=== PATIENT | male | born 1950 | race Two or more races ===

== ENCOUNTER 2017-07-18 08:23 | Day surgery (SDC) | payer OTHER ==
[~2017-07-18] VITALS: Ht 180.3 cm; Wt 118.4 kg
[~2017-07-18 08:23] MED LIST: ASPI81TA27 PO; ATOR20TA50 PO; ESCI10TA53 PO; FURO40TA4 PO; HYDR4TAB2 PO; IODIXANOL 320MG/ML 100ML BTL IV ONE; ISOS20TA56 PO; LIDOCAINE 2%HCL (LOCAL ANESTH.) INJ 20ML MDV ONE; METO-158 PO; MORP30TA PO; POTA10TA51 PO
[2017-07-18] MEDS ORDERED: MIDAZOLAM HCL 1MG/1ML-2 ML VIAL ONE (10:02)
[2017-07-18] MEDS ORDERED: fentaNYL CITRATE 100 MCG/2 ML VL ONE (10:03)
[2017-07-18] MEDS ORDERED: ANGIOMAX 250 MG VIAL IV ONE (10:03)
[2017-07-18] MEDS ORDERED: SODIUM CHL 0.9% 50 ML ONE (10:44)
== END 2017-07-18 13:00 | disposition home or self-care (01) ==
LOC: CATH 08:23
PROVIDERS: ATTEND Internal Medicine
DX: I20.0 Unstable angina (principal); Z87.891 Personal history of nicotine dependence; I10 Essential (primary) hypertension; E78.5 Hyperlipidemia, unspecified; I25.2 Old myocardial infarction; Z95.1 Presence of aortocoronary bypass graft
CPT/HCPCS: 93005; 93458; C1760; C1894; J1644; J2250; J3010; J7030; Q9967; 99152; 99153

== ENCOUNTER → 2019-11-12 | Day surgery (SDC) | payer OTHER ==
[~2019-11-12] VITALS: Ht 182.9 cm; Wt 104.3 kg
[~2019-11-12] MED LIST changes: +ASPI-404 PO; -ASPI81TA27 PO; +BUPIVACAINE 0.25% INJ 50ML VIAL ONE; +CEPH250C PO; +DOCU-94 PO; +DexAMETHasone SOD PHOS 10MG/1ML VIAL INJ ONE; +HYDR-4833 GT; +HYDROmorphone HCL 2 MG/ML VL IV PRN; -IODIXANOL 320MG/ML 100ML BTL IV ONE; +LABETALOL HCL 5 MG/ML 4ML SYRINGE IV PRN; +LIDOCAINE 1% HCL (LOCAL ANESTH.) INJ 20ML MDV ONE; -LIDOCAINE 2%HCL (LOCAL ANESTH.) INJ 20ML MDV ONE; +MEPERIDINE HCL (25 MG/ML) 1ML VIAL ONE; +MIDAZOLAM HCL 1MG/1ML-2 ML VIAL IV PRN; +MIDAZOLAM HCL 1MG/1ML-2 ML VIAL ONE; +MORPHINE SULFATE 4 MG/ML SYR/VIAL IV PRN; +ONDANSETRON HCL 4 MG/2 ML VIAL IV PRN; +PROPOFOL 10 MG/ML 20 ML IV ONE; +ceFAZolin 1GM/50ML 100 ML IV ONE; +ePHEDrine SULFATE 50 MG/ML AMP IV PRN; +fentaNYL CITRATE 100 MCG/2 ML VL ONE
[2019-11-12 07:23] LABS: Basophils # (auto) 0.1 uL; Basophils % (auto) 0.7 % (0.0-2.0); Eosinophils # (auto) 0.5 uL; Eosinophils % (auto) 7.3 % (0.0-7.0); Hematocrit 45.2 % (41.0-53.0); Lymphocytes # (auto) 1.7 uL; Lymphocytes % (auto) 23.9 % (10.0-50.0); Mean Corpuscular Hemoglobin 28.3 pg (28.0-32.0); Mean Corpuscular Hgb Conc. 33.1 g/dL (32.0-36.0); Mean Corpuscular Volume 85.5 fL (80.0-100.0); Monocytes # (auto) 0.6 uL; Monocytes % (auto) 7.8 % (0.0-12.0); Neutrophils # (auto) 4.4 uL; Neutrophils % (auto) 60.3 % (37.0-80.0); Platelet Count (auto) 185 10^3/uL (140-450); Red Blood Cells 5.29 10^6/uL (4.5-5.90); Red Cell Distribution Width 14.2 % (11.8-14.3); White Blood Cell 7.3 10^3/uL (4.4-10.8)
[2019-11-12 07:38] LABS: INR 1.12 (0.9-1.15); Partial Thromboplastin Time 29.1 sec (23.64-32.05)
[2019-11-12 08:49] VITALS: BP 111/84
== END | disposition home or self-care (01) ==
LOC: SUR 06:01
PROVIDERS: ATTEND Surgery
DX: L72.0 Epidermal cyst (principal); L72.3 Sebaceous cyst; I10 Essential (primary) hypertension; J45.909 Unspecified asthma, uncomplicated; I25.2 Old myocardial infarction; I25.10 Atherosclerotic heart disease of native coronary artery without angina pectoris; E78.5 Hyperlipidemia, unspecified; F17.210 Nicotine dependence, cigarettes, uncomplicated; Z79.899 Other long term (current) drug therapy; Z95.0 Presence of cardiac pacemaker; Z98.890 Other specified postprocedural states
CPT/HCPCS: 11401; 11403; 36415; 85025; 85610; 85730; 87070; 87075; J0690; J1100; J2001; J2175; J2250; J2704; J3010; J3490

== ENCOUNTER 2020-08-10 05:27 | Emergency (ER) | payer OTHER ==
[~2020-08-10] VITALS: Ht 177.8 cm; Wt 109.0 kg
[~2020-08-10 05:27] MED LIST changes: -ASPI-404 PO; +ASPI-543 PO; -BUPIVACAINE 0.25% INJ 50ML VIAL ONE; -DexAMETHasone SOD PHOS 10MG/1ML VIAL INJ ONE; -HYDROmorphone HCL 2 MG/ML VL IV PRN; -LABETALOL HCL 5 MG/ML 4ML SYRINGE IV PRN; -LIDOCAINE 1% HCL (LOCAL ANESTH.) INJ 20ML MDV ONE; -MEPERIDINE HCL (25 MG/ML) 1ML VIAL ONE; -MIDAZOLAM HCL 1MG/1ML-2 ML VIAL IV PRN; -MIDAZOLAM HCL 1MG/1ML-2 ML VIAL ONE; -MORPHINE SULFATE 4 MG/ML SYR/VIAL IV PRN; -ONDANSETRON HCL 4 MG/2 ML VIAL IV PRN; -PROPOFOL 10 MG/ML 20 ML IV ONE; -ceFAZolin 1GM/50ML 100 ML IV ONE; -ePHEDrine SULFATE 50 MG/ML AMP IV PRN; -fentaNYL CITRATE 100 MCG/2 ML VL ONE
[2020-08-10] MEDS ORDERED: ASPirin 81 mg TAB PO ONE (06:15)
[2020-08-10 06:54] LABS: Basophils # (auto) 0 10 ^3/uL (0-0.2); Basophils % (auto) 0.6 % (0.0-2.0); Eosinophils # (auto) 0.3 10 ^3/uL (0-0.8); Eosinophils % (auto) 3.7 % (0.0-7.0); Hemoglobin 14.9 g/dL (13.5-17.5); Lymphocytes % (auto) 11.6 % (10.0-50.0); Mean Corpuscular Hemoglobin 27.9 pg (28.0-32.0); Mean Corpuscular Hgb Conc. 33.1 g/dL (32.0-36.0); Mean Corpuscular Volume 84.5 fL (80.0-100.0); Monocytes # (auto) 0.5 10 ^3/uL (0-1.3); Monocytes % (auto) 5.6 % (0.0-12.0); Neutrophils % (auto) 78.5 % (37.0-80.0); Platelet Count (auto) 178 10^3/uL (140-450); Red Blood Cells 5.33 10^6/uL (4.5-5.90); Red Cell Distribution Width 14.4 % (11.8-14.3)
[2020-08-10 07:17] LABS: Chloride 109 mmol/L (98-107); INR 1.04 (0.9-1.15); Partial Thromboplastin Time 26.8 sec (23.0-31.2); Potassium 3.7 mmol/L (3.5-5.1); Sodium 139 mmol/L (136-145)
[2020-08-10 07:33] LABS: Alanine Aminotransferase 21 U/L (16-61); Albumin 3.6 g/dL (3.4-5.0); Alkaline Phosphatase 76 U/L (45-117); Anion Gap 6 (5-15); Aspartate Aminotransferase 13 U/L (15-37); BUN/Creatinine Ratio 14.9; Bilirubin, Total 0.6 mg/dL (0.2-1.0); Blood Urea Nitrogen 13 mg/dL (7-18); Calcium 8.5 mg/dL (8.5-10.1); Carbon Dioxide 24 mmol/L (21-32); GFR African American 112 mL/min; GFR Non-African American 92 mL/min; Glucose 98 mg/dL (74-106); Magnesium 2.4 mg/dL (1.6-2.6); Total Protein 7.5 g/dL (6.4-8.2)
[2020-08-10 12:13] VITALS: BP 142/77
--- NOTE | 2020-08-10 14:05 | NUR ---
1200 08/10/20 Faxed to [facility] case assistant Lizbeth at [phone] face sheet, STAT order to notify case assistant to schedule f/u with PCP this week and referral to Dr Harmon, cardiology for chest pain eval in 1-2 weeks. Contacted Lizbeth at [phone], was unable to connect with her but left message on voicemail regarding the above information. Pending review and scheduling of f/u appointments by PCP.
--- NOTE | 2020-08-10 15:32 | NUR ---
1445 08/10/20 - Contacted by [facility] counter caser Lizbeth, who confirmed receiving all faxed documentation. Lizbeth also stated she would process all orders received and PCP will make contact with patient as needed.
== END 2020-08-10 12:12 | disposition home or self-care (01) ==
LOC: ER 05:27
DX: I11.0 Hypertensive heart disease with heart failure (principal); I50.9 Heart failure, unspecified; R07.89 Other chest pain; F17.210 Nicotine dependence, cigarettes, uncomplicated; I25.2 Old myocardial infarction; Z95.1 Presence of aortocoronary bypass graft
CPT/HCPCS: 36415; 71045; 80053; 83735; 83880; 84484; 85025; 85610; 85730

== ENCOUNTER 2020-08-15 23:02 | Inpatient (IN) | payer OTHER ==
[~2020-08-15] VITALS: Ht 180.3 cm; Wt 108.9 kg
[2020-08-16 00:08] LABS: Basophils # (auto) 0.1 10 ^3/uL (0-0.2); Basophils % (auto) 0.6 % (0.0-2.0); Eosinophils # (auto) 0 10 ^3/uL (0-0.8); Eosinophils % (auto) 0.1 % (0.0-7.0); Hematocrit 45.2 % (41.0-53.0); Hemoglobin 14.8 g/dL (13.5-17.5); Lymphocytes # (auto) 0.5 10 ^3/uL (0.4-5.4); Lymphocytes % (auto) 4.6 % (10.0-50.0); Mean Corpuscular Hemoglobin 27.6 pg (28.0-32.0); Mean Corpuscular Hgb Conc. 32.8 g/dL (32.0-36.0); Mean Corpuscular Volume 84.4 fL (80.0-100.0); Monocytes # (auto) 0.6 10 ^3/uL (0-1.3); Monocytes % (auto) 5.7 % (0.0-12.0); Neutrophils # (auto) 8.8 10 ^3/uL (1.6-8.6); Nucleated Red Blood Cells % 0.1 %; Platelet Count (auto) 105 10^3/uL (140-450); Red Blood Cells 5.35 10^6/uL (4.5-5.90); Red Cell Distribution Width 14.1 % (11.8-14.3); White Blood Cell 9.9 10^3/uL (4.4-10.8)
[2020-08-16 00:23] LABS: Urine Bacteria FEW /hpf (None Seen); Urine Blood 2+ /uL (Negative); Urine Mucus FEW (None Seen); Urine Specific Gravity 1.024 (1.001-1.035); Urine WBC 3 /hpf (0 - 3)
[2020-08-16 00:36] LABS: Alanine Aminotransferase 24 U/L (16-61); Albumin 3.4 g/dL (3.4-5.0); Anion Gap 8 (5-15); Aspartate Aminotransferase 17 U/L (15-37); Blood Urea Nitrogen 20 mg/dL (7-18); Calcium 8.4 mg/dL (8.5-10.1); Carbon Dioxide 23 mmol/L (21-32); Chloride 103 mmol/L (98-107); GFR African American 95 mL/min; GFR Non-African American 79 mL/min; Glucose 130 mg/dL (74-106); Sodium 134 mmol/L (136-145)
[2020-08-16 00:39] LABS: Alkaline Phosphatase 79 U/L (45-117); Bilirubin, Total 0.7 mg/dL (0.2-1.0); Total Protein 7.8 g/dL (6.4-8.2)
[2020-08-16] MEDS ORDERED: SODIUM CHLORIDE 0.9% 1,000 ML IV ONE (05:30)
[2020-08-16] MEDS ORDERED: metroNIDAZOLE 500MG/100ML 100 ML IV ONE (05:30)
[2020-08-16] MEDS ORDERED: CIPROFLOXACIN 400MG/200ML 200 ML IV ONE (05:30)
[2020-08-16] MEDS ORDERED: ONDANSETRON HCL 4 MG/2 ML VIAL IV PRN (06:15)
[2020-08-16] MEDS ORDERED: NITROGLYCERIN 0.4 MG SL TAB SL PRN (06:15)
[2020-08-16] MEDS ORDERED: SODIUM CHLORIDE 0.9% 1,000 ML IV SCH (06:15)
[2020-08-16] MEDS ORDERED: HYDROcodone-ACET 5/325MG TAB PO PRN (06:15)
[2020-08-16] MEDS ORDERED: MORPHINE SULF INJ 2 MG/ML SYRINGE 1ML IV PRN (06:15)
[2020-08-16] MEDS ORDERED: ACETAMINOPHEN 325 MG TAB PO PRN (06:15)
[2020-08-16 07:10] LABS: Basophils # (auto) 0 10 ^3/uL (0-0.2); Basophils % (auto) 0.5 % (0.0-2.0); Eosinophils # (auto) 0 10 ^3/uL (0-0.8); Eosinophils % (auto) 0.5 % (0.0-7.0); Hematocrit 42.8 % (41.0-53.0); Hemoglobin 14.4 g/dL (13.5-17.5); Lymphocytes # (auto) 0.3 10 ^3/uL (0.4-5.4); Lymphocytes % (auto) 5.2 % (10.0-50.0); Mean Corpuscular Hemoglobin 28.2 pg (28.0-32.0); Mean Corpuscular Hgb Conc. 33.6 g/dL (32.0-36.0); Mean Corpuscular Volume 84.1 fL (80.0-100.0); Monocytes # (auto) 0.4 10 ^3/uL (0-1.3); Monocytes % (auto) 7.3 % (0.0-12.0); Neutrophils # (auto) 5.2 10 ^3/uL (1.6-8.6); Neutrophils % (auto) 86.5 % (37.0-80.0); Nucleated Red Blood Cells % 0.4 %; Platelet Count (auto) 146 10^3/uL (140-450); Red Blood Cells 5.08 10^6/uL (4.5-5.90); Red Cell Distribution Width 14.3 % (11.8-14.3)
[2020-08-16 07:39] LABS: Albumin 3.1 g/dL (3.4-5.0); Calcium 8.2 mg/dL (8.5-10.1); Potassium 3.7 mmol/L (3.5-5.1)
[2020-08-16 07:44] LABS: BUN/Creatinine Ratio 20.7; Bilirubin, Total 0.8 mg/dL (0.2-1.0); Total Protein 7.1 g/dL (6.4-8.2)
[2020-08-16] MEDS ORDERED: DOCUSATE SOD 100 MG CAP PO SCH (10:00)
[2020-08-16] MEDS ORDERED: CIPROFLOXACIN 400MG/200ML 200 ML IV SCH (10:00)
[2020-08-16] MEDS ORDERED: MULTIPLE VITAMIN TAB PO SCH (10:00)
[2020-08-16] MEDS ORDERED: ASCORBIC ACID 500 MG TAB PO SCH (10:00)
[2020-08-16] MEDS ORDERED: ENOXAPARIN SOD 40 MG/0.4 ML SYRINGE SC SCH (10:00)
[2020-08-16] MEDS ORDERED: metroNIDAZOLE 500MG/100ML 100 ML IV SCH (14:00)
[2020-08-16] MEDS ORDERED: POLYETHYLENE GLYCOL 17 GM PWDR PO ONE (15:00)
[2020-08-16 15:06] VITALS: BP 148/87
[2020-08-16] MEDS ORDERED: CIPR500T4 PO (15:32)
[2020-08-16] MEDS ORDERED: METR500T PO (15:32)
[2020-08-16] MEDS ORDERED: ISOSORBIDE DINITRATE 10 MG TAB PO SCH (22:00)
[2020-08-16] MEDS ORDERED: ATORVASTATIN 20 MG TAB PO SCH (22:00)
[2020-08-16] MEDS ORDERED: ASPirin-EC 81 mg tab PO SCH (22:00)
--- NOTE | 2020-08-17 18:53 | NUR ---
1840 08/17/20 - Faxed to [facility] at [phone] face sheet, orders for home health for reddy care and refer to vascular surgery within 1 week of discharge for AAA, H/P, GI consult, Urology consult. Pending review, pending appointment and accepting home health agency.
--- NOTE | 2020-08-18 12:33 | NUR ---
1220 08/18/20 - Contacted [facility] at [phone], regarding pending HH services. Spoke with marketing production coordinator who confirmed receiving all faxed documentation. Pending review and acceptance.
--- NOTE | 2020-08-19 10:56 | NUR ---
1045 08/19/20- Contacted [facility] at [phone] spoke with lactation coordinator who stated due to short staffing they are unable to accept patient at this time. Faxed to [facility] at [phone], face sheet, Order for [facility] for reddy care, H/P, discharge summary. Pending review and acceptance.
--- NOTE | 2020-08-19 11:50 | NUR ---
1145 08/19/20 - Contacted [facility] at [phone] and spoke with inventory control coordinator who confirmed receiving all faxed documentation. She also state they would accept patient for services and requested authorization number. I informed her [facility] business case analyst will call with the authorization.
== END 2020-08-16 17:05 | disposition home health service (06) | DRG 392 ==
LOC: ER 23:02 → TELE 23:03
PROVIDERS: ADMIT Nurse Practitioner Family; ATTEND Nurse Practitioner Family
DX: K57.32 Diverticulitis of large intestine without perforation or abscess without bleeding (principal); F17.210 Nicotine dependence, cigarettes, uncomplicated; F32.9 Major depressive disorder, single episode, unspecified; I10 Essential (primary) hypertension; I25.10 Atherosclerotic heart disease of native coronary artery without angina pectoris; I71.4 Abdominal aortic aneurysm, without rupture; K59.00 Constipation, unspecified; N20.0 Calculus of kidney; N40.1 Benign prostatic hyperplasia with lower urinary tract symptoms; I25.2 Old myocardial infarction; Z95.1 Presence of aortocoronary bypass graft
CPT/HCPCS: 36415; 74176; 76705; 80053; 81001; 83036; 83605; 83880; 85025; 87040; 87086; 96365; G0378; J3490

== ENCOUNTER 2020-09-17 11:18 | Emergency (ER) | payer OTHER ==
[~2020-09-17] VITALS: Ht 175.3 cm; Wt 108.9 kg
[~2020-09-17 11:18] MED LIST changes: +CIPR500T4 PO; +METR500T PO
[2020-09-17 11:37] VITALS: BP 157/93
[2020-09-17] MEDS ORDERED: PHENAZOPYRIDINE HCL 100 MG TAB PO ONE (12:30)
[2020-09-17 12:40] LABS: Urine Bacteria MOD /hpf (None Seen); Urine Blood 2+ /uL (Negative); Urine Mucus FEW (None Seen); Urine Specific Gravity 1.024 (1.001-1.035); Urine WBC 498 /hpf (0 - 3)
[2020-09-17] MEDS ORDERED: cefTRIAXone SOD 1,000 MG VL IM ONE (12:45)
== END 2020-09-17 13:18 | disposition home or self-care (01) ==
LOC: ER 11:18
DX: N39.0 Urinary tract infection, site not specified (principal); I10 Essential (primary) hypertension; I25.2 Old myocardial infarction
CPT/HCPCS: 81001; 96372; 99283; J0696

== ENCOUNTER 2022-06-13 19:41 | Inpatient (IN) | payer OTHER ==
[~2022-06-13] VITALS: Ht 175.3 cm; Wt 110.0 kg
[~2022-06-13 19:41] MED LIST changes: +CEPH-322 PO; -CEPH250C PO; +ESCI-28 PO; -ESCI10TA53 PO; +ISOS20TA5 PO; -ISOS20TA56 PO
[2022-06-13] MEDS ORDERED: ASPirin 325 MG TAB PO ONE (20:00)
[2022-06-13] MEDS ORDERED: NITROGLYCERIN 0.4 MG SL TAB SL ONE (20:00)
[2022-06-13 21:53] LABS: Albumin 3.5 g/dL (3.4-5.0); Calcium 8.4 mg/dL (8.5-10.1); Potassium 4.1 mmol/L (3.5-5.1)
[2022-06-13 21:58] LABS: BUN/Creatinine Ratio 13.8; Bilirubin, Total 0.6 mg/dL (0.2-1.0); Total Protein 7.7 g/dL (6.4-8.2)
[2022-06-13 22:00] LABS: Basophils # (auto) 0 10 ^3/uL (0-0.2); Eosinophils # (auto) 0.1 10 ^3/uL (0-0.8); Hemoglobin 14.7 g/dL (13.5-17.5)
[2022-06-13 22:02] LABS: Basophils % (auto) 0.7 % (0.0-2.0); Eosinophils % (auto) 1.1 % (0.0-7.0); Hematocrit 44.3 % (41.0-53.0); Lymphocytes # (auto) 0.6 10 ^3/uL (0.4-5.4); Lymphocytes % (auto) 11.1 % (10.0-50.0); Mean Corpuscular Hemoglobin 27.3 pg (28.0-32.0); Mean Corpuscular Hgb Conc. 33.2 g/dL (32.0-36.0); Mean Corpuscular Volume 82.1 fL (80.0-100.0); Monocytes # (auto) 0.4 10 ^3/uL (0-1.3); Monocytes % (auto) 7.8 % (0.0-12.0); Neutrophils # (auto) 4.5 10 ^3/uL (1.6-8.6); Neutrophils % (auto) 79.3 % (37.0-80.0); Nucleated Red Blood Cells % 0.2 %; Red Cell Distribution Width 14.4 % (11.8-14.3); White Blood Cell 5.6 10^3/uL (4.4-10.8)
[2022-06-14] MEDS ORDERED: IOHEXOL 350 MG/ML 100ML IJ ONE (00:14)
[2022-06-14] MEDS ORDERED: ENOXAPARIN SOD 120 MG/0.8 ML SYRINGE SC ONE (00:15)
[2022-06-14 01:24] LABS: Urine Bacteria FEW /hpf (None Seen); Urine Blood TRACE /uL (Negative); Urine Mucus FEW (None Seen); Urine Specific Gravity 1.036 (1.001-1.035); Urine WBC 1 /hpf (0 - 3)
[2022-06-14] MEDS ORDERED: NITROGLYCERIN 0.4 MG SL TAB SL PRN (03:00)
[2022-06-14] MEDS: FUROSEMIDE 40 MG TAB PO SCH (09:35)
[2022-06-14] MEDS: ASPirin 81 mg TAB PO SCH (09:37)
[2022-06-14] MEDS: METOPROLOL TARTRATE 50 MG TAB PO SCH (09:37)
[2022-06-14] MEDS: PANTOPRAZOLE 40 MG TAB PO SCH (09:38)
[2022-06-14] MEDS ORDERED: ENOXAPARIN SOD 40 MG/0.4 ML SYRINGE SC SCH (10:00)
[2022-06-14 11:01] LABS: Cholesterol 72 mg/dL (< 200); HDL Cholesterol 31 mg/dL (40-59); LDL Cholesterol 39 mg/dL (< 100); Triglycerides 98 mg/dL (< 150)
[2022-06-14] MEDS: ACETAMINOPHEN 325 MG TAB PO PRN (14:42)
[2022-06-14] MEDS: ONDANSETRON HCL 4 MG/2 ML VIAL IV PRN (14:58)
[2022-06-14 15:18] VITALS: BP 128/77
[2022-06-14 17:00] VITALS: BP 122/80
[2022-06-14 20:00] VITALS: BP 103/64
[2022-06-14 22:00] VITALS: BP 103/64
[2022-06-14] MEDS ORDERED: ATORVASTATIN 20 MG TAB PO SCH (22:00)
[2022-06-15] VITALS (7 sets, daily range): BP systolic 121–148; BP diastolic 81–96
[2022-06-15] MEDS: ONDANSETRON HCL 4 MG/2 ML VIAL IV PRN ×2 (00:39→06:22)
[2022-06-15] MEDS: MORPHINE SULFATE INJ 2 MG/ml SYRG IV PRN ×2 (00:39→07:09)
[2022-06-15 05:35] LABS: Basophils # (auto) 0 10 ^3/uL (0-0.2); Basophils % (auto) 0.5 % (0.0-2.0); Eosinophils # (auto) 0.3 10 ^3/uL (0-0.8); Eosinophils % (auto) 3.9 % (0.0-7.0); Hematocrit 44.7 % (41.0-53.0); Hemoglobin 15.1 g/dL (13.5-17.5); Lymphocytes # (auto) 1.1 10 ^3/uL (0.4-5.4); Lymphocytes % (auto) 14.1 % (10.0-50.0); Mean Corpuscular Hemoglobin 27.2 pg (28.0-32.0); Mean Corpuscular Hgb Conc. 33.7 g/dL (32.0-36.0); Mean Corpuscular Volume 80.6 fL (80.0-100.0); Monocytes # (auto) 0.8 10 ^3/uL (0-1.3); Monocytes % (auto) 11.1 % (0.0-12.0); Neutrophils # (auto) 5.3 10 ^3/uL (1.6-8.6); Neutrophils % (auto) 70.4 % (37.0-80.0); Nucleated Red Blood Cells % 0.2 %; Red Blood Cells 5.55 10^6/uL (4.5-5.90); Red Cell Distribution Width 14.4 % (11.8-14.3); White Blood Cell 7.5 10^3/uL (4.4-10.8)
[2022-06-15 05:36] LABS: BUN/Creatinine Ratio 18.5; Calcium 8.8 mg/dL (8.5-10.1); Potassium 4.4 mmol/L (3.5-5.1)
[2022-06-15 06:16] LABS: INR 1.06 (0.9-1.15); Partial Thromboplastin Time 28.8 sec (24.6-33.4)
[2022-06-15] MEDS: ACETAMINOPHEN 325 MG TAB PO PRN (06:22)
[2022-06-15] MEDS ORDERED: HYDROcodone-ACET 5/325MG TAB PO PRN (06:45)
[2022-06-15] MEDS ORDERED: fentaNYL CITRATE 100 MCG/2 ML VL ONE (09:37)
[2022-06-15] MEDS ORDERED: ANGIOMAX 250 MG VIAL IV ONE (09:37)
[2022-06-15] MEDS ORDERED: SODIUM CHL 0.9% 50 ML ONE (09:37)
[2022-06-15] MEDS ORDERED: MIDAZOLAM HCL 2MG/2ML 2ml VIAL (1mg/ml) ONE (09:37)
[2022-06-15] MEDS ORDERED: LIDOCAINE 2%HCL (LOCAL ANESTH.) INJ 20ML MDV ONE (09:42)
[2022-06-15] MEDS ORDERED: IODIXANOL 320MG/ML 100ML BTL IV ONE ×2 (09:42→10:14)
[2022-06-15] MEDS ORDERED: HYDROmorphone HCL 2 MG/ML VL/or syr ONE (09:53)
[2022-06-15] MEDS ORDERED: diphenhdrAMINE HCL 50 MG/1 ML VL ONE (10:29)
[2022-06-15] MEDS ORDERED: KETOROLAC TROMETH 30 MG/ML 1ML VIAL IV ONE (10:30)
[2022-06-15] MEDS ORDERED: RANOLAZINE ER 500 MG TAB PO SCH (11:30)
[2022-06-15] MEDS: ASPirin 81 mg TAB PO SCH (12:48)
[2022-06-15] MEDS: PANTOPRAZOLE 40 MG TAB PO SCH (12:48)
[2022-06-15] MEDS: FUROSEMIDE 40 MG TAB PO SCH (12:49)
[2022-06-15] MEDS: METOPROLOL TARTRATE 50 MG TAB PO SCH (12:49)
[2022-06-15] MEDS ORDERED: RANO500T2 PO (16:35)
[2022-06-15] MEDS ORDERED: ATO40T PO (16:35)
[2022-06-15] MEDS ORDERED: ATORVASTATIN 20 MG TAB PO SCH (22:00)
== END 2022-06-15 18:35 | disposition home or self-care (01) | DRG 251 ==
LOC: EDBD 19:41 → ER 19:43 → TELE 06-14 03:02 → TELE-EAST 06-14 15:19
PROVIDERS: ADMIT Nurse Practitioner; ATTEND Internal Medicine
PROC: 4A023N7 Measurement of Cardiac Sampling and Pressure, Left Heart, Percutaneous Approach (ICD-10-PCS; principal; 2022-06-15)
PROC: 02703ZZ Dilation of Coronary Artery, One Artery, Percutaneous Approach (ICD-10-PCS; 2022-06-15)
PROC: B211YZZ Fluoroscopy of Multiple Coronary Arteries using Other Contrast (ICD-10-PCS; 2022-06-15)
PROC: B215YZZ Fluoroscopy of Left Heart using Other Contrast (ICD-10-PCS; 2022-06-15)
DX: I25.110 Atherosclerotic heart disease of native coronary artery with unstable angina pectoris (principal); I11.0 Hypertensive heart disease with heart failure; I45.10 Unspecified right bundle-branch block; I50.9 Heart failure, unspecified; I71.4 Abdominal aortic aneurysm, without rupture; E78.5 Hyperlipidemia, unspecified; Z20.822 Contact with and (suspected) exposure to COVID-19; N40.0 Benign prostatic hyperplasia without lower urinary tract symptoms; F03.90 Unspecified dementia, unspecified severity, without behavioral disturbance, psychotic disturbance, mood disturbance, and anxiety; F17.210 Nicotine dependence, cigarettes, uncomplicated; I25.2 Old myocardial infarction; Z79.899 Other long term (current) drug therapy; Z95.1 Presence of aortocoronary bypass graft
CPT/HCPCS: 36415; 71045; 71275; 80048; 80053; 80061; 81001; 83036; 83880; 84443; 84484; 85025; 85379; 85610; 85730; 86850; 86900; 86901; 92920; 93306; 93458; 96372; 96374; 99152; 99153; 99291; C1887; G0378; J2250; J2405; Q9967